=== PATIENT | female | born 1995 | race Caucasian/White ===

== ENCOUNTER 2019-03-14 23:32 | Emergency (ER) | payer MEDICAID ==
[~2019-03-14] VITALS: Ht 154.9 cm; Wt 59.0 kg
[~2019-03-14 23:32] MED LIST: PREN1TAB49 PO
[2019-03-15 00:30] VITALS: BP 129/93
== END 2019-03-15 01:15 | disposition home or self-care (01) ==
LOC: ER 23:32
DX: T40.601A Poisoning by unspecified narcotics, accidental (unintentional), initial encounter (principal); Y92.9 Unspecified place or not applicable
CPT/HCPCS: 99283

== ENCOUNTER 2022-09-11 03:39 | Emergency (ER) | payer MEDICAID ==
[~2022-09-11] VITALS: Ht 160 cm; Wt 73.0 kg
[2022-09-11 03:41] VITALS: BP 144/81
== END 2022-09-11 03:59 | disposition left against medical advice (07) ==
LOC: ER 03:39
DX: T40.411A Poisoning by fentanyl or fentanyl analogs, accidental (unintentional), initial encounter (principal); Z88.0 Allergy status to penicillin; Y92.488 Other paved roadways as the place of occurrence of the external cause
CPT/HCPCS: 99283

== ENCOUNTER 2025-05-09 18:25 | Emergency (ER) | payer MEDICAID, OTHER ==
[~2025-05-09] VITALS: Ht 152.4 cm; Wt 64.0 kg
[2025-05-09 18:29] VITALS: O2SAT 99
[2025-05-09 21:20] VITALS: BP 143/78; PULSE 83; RESP 15; TEMP 37.1; O2SAT 99
[2025-05-09] MEDS: DEXAMETHASONE 10 MG/ML VIAL PO ONE (21:21)
[2025-05-09] MEDS: DIPHENHYDRAMINE 25MG CAPSULE PO ONE (21:21)
[2025-05-09] MEDS: FAMOTIDINE 20MG TABLET PO ONE (21:22)
[2025-05-09] MEDS ORDERED: DIPH25CA83 MT (21:42)
[2025-05-09] MEDS ORDERED: DIPH28.33 TP (21:42)
== END 2025-05-09 22:33 | disposition home or self-care (01) ==
LOC: ER 18:25
DX: T63.441A Toxic effect of venom of bees, accidental (unintentional), initial encounter (principal); Z79.52 Long term (current) use of systemic steroids; Z88.0 Allergy status to penicillin; Y92.89 Other specified places as the place of occurrence of the external cause
CPT/HCPCS: 81025; 99284; Q0163; J1100; Z7610